=== PATIENT | female | born 1990 | race Caucasian/White ===

== ENCOUNTER 2021-05-25 08:30 | Emergency (ER) | payer SELFPAY ==
--- NOTE | 2021-05-25 09:31 | EDM.PDOC ---
ED HPI GENERAL MEDICAL PROBLEM - General Chief Complaint: Headache Stated Complaint: HEADACHE,BODY ACHES Time Seen by Provider: 05/25/21 09:18 Source of Information: Reports: Patient History Limitations: Reports: No Limitations - History of Present Illness INITIAL COMMENTS - FREE TEXT/NARRATIVE: pt arrived with a headache since covd which is there every day. She is on gabpentin. She feels exhausted and is becoming depressed. She is eating normally. She has not been able to work. Onset: Gradual, Other ( this has been going on since she had covid Apr 27. ) Duration: Day(s): Location: Reports: Head, Generalized Associated Symptoms: Reports: Weakness, Other ( body aches. 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: Psychiatric History: Reports: Depression - Past Surgical History Female Surgical History: Reports: Tubal Ligation Other Female Surgeries/Procedures: tubal reversal Social & Family History - Tobacco Use Tobacco Use Status *Q: Never Tobacco User - Caffeine Use Caffeine Use: Reports: None - Recreational Drug Use Recreational Drug Use: No ED ROS GENERAL - Review of Systems Review Of Systems: See Below Constitutional: Reports: Chills, Weakness HEENT: Reports: No Symptoms Respiratory: Reports: Cough, Other ( slight) Cardiovascular: Reports: No Symptoms Endocrine: Reports: No Symptoms GI/Abdominal: Reports: No Symptoms : Reports: No Symptoms Musculoskeletal: Reports: Muscle Pain, Muscle Stiffness Neurological: Reports: Dizziness, Headache, Other ( difficulty comunicating. ) Psychiatric: Reports: Anxiety - Physical Exam Exam: See Below Text/Narrative:: pt arrived with a severe headache which is unrelenting. She had a cat scan that was neg. She has not been vomiting. She is 3 weeks post covid. Exam Limited By: No Limitations General Appearance: Alert, Anxious, Moderate Distress Ears: Normal TMs Nose: Normal Inspection Throat/Mouth: Normal Inspection Head Exam: Atraumatic Neck: Normal Inspection Respiratory/Chest: No Respiratory Distress Cardiovascular: Regular Rate, Rhythm GI/Abdominal: Soft, Non-Tender (Female) Exam: Deferred Rectal (Female) Exam: Deferred Neuro Exam (Abbreviated): Alert, Oriented, Normal Cognition, Other (pt has a very flat affect and seemes quite discouraged. ) Back Exam: Normal Inspection Extremities: Normal Inspection Psychiatric: Flat Affect Course - Vital Signs Last Recorded V/S: Last Vital Signs Temp 36.6 C 05/25/21 09:02 Pulse 59 L 05/25/21 09:02 Resp 18 05/25/21 09:02 BP 142/65 H 05/25/21 09:02 Pulse Ox 100 05/25/21 09:02 - Orders/Labs/Meds Orders: Active Orders 24 hr Category Date Time Status Chest 1V Frontal [CR] Stat Exams 05/25/21 11:34 Taken UA W/MICROSCOPIC [URIN] Urgent Lab 05/25/21 09:31 Ordered Sodium Chloride 0.9% [Normal Saline] 1,000 ml Med 05/25/21 11:45 Active IV ASDIRECTED Medication Orders Sodium Chloride (Normal Saline) 1,000 mls @ 999 mls/hr IV ASDIRECTED JOVON Last Admin: 05/25/21 12:01 Dose: 999 mls/hr Documented by: FARIDA Labs: Laboratory Tests 05/25/21 05/25/21 05/25/21 Range/Units 09:31 09:40 09:40 WBC 6.1 (4.5-11.0) K/uL RBC 4.55 (3.30-5.50) M/uL Hgb 13.5 (12.0-15.0) g/dL Hct 40.2 (36.0-48.0) % MCV 88 (80-98) fL MCH 30 (27-31) pg MCHC 34 (32-36) % Plt Count 112 L (150-400) K/uL Add Manual Diff Yes Neutrophils % (Manual) 58 (36-66) % Band Neutrophils % 8 (5-11) % Lymphocytes % (Manual) 22 L (24-44) % Monocytes % (Manual) 10 H (2-6) % Basophils % (Manual) 2 H (0-1) % Sodium 141 (140-148) mmol/L Potassium 3.7 (3.6-5.2) mmol/L Chloride 103 (100-108) mmol/L Carbon Dioxide 29 (21-32) mmol/L Anion Gap 9.4 (5.0-14.0) mmol/L BUN 8 (7-18) mg/dL Creatinine 0.7 (0.6-1.0) mg/dL Est Cr Clr Drug Dosing 102.86 mL/min Estimated GFR (MDRD) > 60 (>60) Glucose 93 (74-106) mg/dL Calcium 8.7 (8.5-10.1) mg/dL Total Bilirubin 0.3 (0.2-1.0) mg/dL AST 114 H (15-37) U/L ALT 36 (12-78) U/L Alkaline Phosphatase 107 (46-116) U/L C-Reactive Protein 3.45 H (0.0-0.3) mg/dL Total Protein 6.2 L (6.4-8.2) g/dL Albumin 2.9 L (3.4-5.0) g/dL Globulin 3.3 (2.3-3.5) g/dL Albumin/Globulin Ratio 0.9 L (1.2-2.2) Meds: Medications Generic Name Dose Route Start Last Admin Trade Name Mitchell PRN Reason Stop Dose Admin Sodium Chloride 1,000 mls @ 999 mls/hr 05/25/21 11:45 05/25/21 12:01 Normal Saline IV 999 mls/hr ASDIRECTED JOVON Administration Discontinued Medications Generic Name Dose Route Start Last Admin Trade Name Mitchell PRN Reason Stop Dose Admin Hydromorphone HCl 0.5 mg 05/25/21 11:00 05/25/21 11:07 Hydromorphone 0.5 Mg/0.5 Ml Syringe IM 05/25/21 11:01 0.5 mg ONETIME ONE Administration Ketorolac Tromethamine 10 mg 05/25/21 11:35 05/25/21 12:03 Ketorolac 10 Mg Tab PO 05/25/21 11:36 10 mg ONETIME ONE Administration Ketorolac Tromethamine 30 mg 05/25/21 12:52 05/25/21 12:57 Ketorolac 30 Mg/Ml Sdv IVPUSH 05/25/21 12:53 30 mg ONETIME ONE Administration Oxycodone/Acetaminophen 1 tab 05/25/21 13:27 Acetaminophen/Oxycodone 325-5 Mg Tab PO 05/25/21 13:28 ONETIME ONE - Re-Assessments/Exams Free Text/Narrative Re-Assessment/Exam: 05/25/21 13:34 pt had a cat scan of the head. --this was neg. She had a chest xray which shows a small area of congestion on the rt . Her wbc is low her platlets are low. She has a elevated crp. 05/25/21 13:43 zithromax 500mg now the 250 daily for 7 days. Departure - Departure Time of Disposition: 13:35 Disposition: Home, Self-Care 01 Condition: Fair Clinical Impression: Generalized headaches, Pneumonia, Fatigue - Discharge Information Referrals: Carin Rosario CNM [Primary Care Provider] - Forms: ED Department Discharge Care Plan Goals: appt Dr Pennington, push fluids, narco 5/325 q6h prn for headache for next 5-6 day, use prunes and alot of fruit because of the narcotic usage, rtc for MRI of the head, encourage low level exercise. zithromax 500mg now 250 daily for 7 days. Sepsis Event Note (ED) - Evaluation Sepsis Screening Result: No Definite Risk - Focused Exam Vital Signs: Vital Signs Temp Pulse Resp BP Pulse Ox 05/25/21 09:02 36.6 C 59 L 18 142/65 H 100 - My Orders Last 24 Hours: My Active Orders 05/25/21 09:31 UA W/MICROSCOPIC [URIN] Urgent 05/25/21 11:34 Chest 1V Frontal [CR] Stat 05/25/21 11:45 Sodium Chloride 0.9% [Normal Saline] 1,000 ml IV ASDIRECTED - Assessment/Plan Last 24 Hours: My Active Orders 05/25/21 09:31 UA W/MICROSCOPIC [URIN] Urgent 05/25/21 11:34 Chest 1V Frontal [CR] Stat 05/25/21 11:45 Sodium Chloride 0.9% [Normal Saline] 1,000 ml IV ASDIRECTED
[2021-05-25] MEDS ORDERED: HYDROmorphone 0.5 MG/0.5 ML Syringe IM ONE (11:00)
--- NOTE | 2021-05-25 11:13 | CRLCT ---
For Patients: As a result of the Century Cures Act, medical imaging exams and procedure reports are released immediately into your electronic medical record. You may view this report before your referring provider. If you have questions, please contact your health care provider. Indication: Persistent post COVID headache Technique: CT of the head without contrast. Coronal and sagittal reformats. Bone and soft tissue windows. Comparison: CT 05/21/2021 Findings: No acute intracranial hemorrhage or extra-axial collection. No evidence of acute cortical infarction. No mass effect or midline shift. Normal cerebral volume. The ventricles are normal in size, shape and contour. There is normal carver and white matter differentiation. The orbital contents are normal. No calvarial fractures. No lytic or sclerotic osseous lesions within the calvarium or skull base. Scalp and other imaged soft tissue structures are normal. Mastoid air cells are clear. Paranasal sinuses are well aerated. Polypoid mucosal thickening in the left sphenoid sinus. Impression: No acute intracranial abnormality. Please note that all CT scans at this facility use dose modulation, iterative reconstruction, and/or weight-based dosing when appropriate to reduce radiation dose to as low as reasonably achievable. Dictated by Scar Rick MD @ 05/25/2021 11:11:00 AM (Electronically Signed)
[2021-05-25] MEDS ORDERED: Ketorolac 10 MG Tab PO ONE (11:35)
[2021-05-25] MEDS ORDERED: Sodium Chloride 0.9% 1,000 ML IV SCH (11:45)
[2021-05-25] MEDS ORDERED: Ketorolac 30 MG/ML SDV IVPUSH ONE (12:52)
[2021-05-25] MEDS ORDERED: Acetaminophen/oxyCODONE 325-5 MG Tab PO ONE (13:27)
--- NOTE | 2021-05-26 15:05 | CR ---
CHEST: Portable 05/25/2021 at 11:49 AM CLINICAL HISTORY:Post covid COMPARISON:2012 FINDINGS: Heart size is normal. There is mild prominence of the right hilum. There is some patchy infiltrate in the right infrahilar region. No effusion is seen. Impression: Patchy real infrahilar density may represent pneumonic infiltrate. There is some fullness right hilum. Two-view upright chest is recommended
== END 2021-05-25 13:57 | disposition home or self-care (01) ==
LOC: JP.ED 08:30
DX: J18.9 Pneumonia, unspecified organism (principal); R51.9 Headache, unspecified; Z88.5 Allergy status to narcotic agent; Z88.0 Allergy status to penicillin
CPT/HCPCS: 36415; 70450; 71045; 80053; 85025; 86140; 96372; 96374; 99284; A9270; J1170; J1885; J7030